=== PATIENT | male | born 1960 | race Caucasian/White ===

== ENCOUNTER 2017-03-30 09:41 | Emergency (ER) | payer SELFPAY ==
[2017-03-30 09:50] VITALS: BP 163/92
[2017-03-30] MEDS ORDERED: Proparacaine 0.5% Ophth Soln 15 ML Bottle EYERT ONE (10:01)
--- NOTE | 2017-03-30 10:22 | EDM.PDOC ---
ED HPI GENERAL MEDICAL PROBLEM - General Chief Complaint: Eye Problems Stated Complaint: SOMETHING IN RIGHT EYE Time Seen by Provider: 03/30/17 09:55 Source of Information: Reports: Patient History Limitations: Reports: No Limitations - History of Present Illness INITIAL COMMENTS - FREE TEXT/NARRATIVE: 56-year-old male feels a foreign body sensation in his right eye for the last 3 days. This morning it was very painful and his vision was blurry, it felt then that the foreign body dislodged and moved laterally but he is still having some symptoms so wanted it checked. Associated Symptoms: Reports: No Other Symptoms - Related Data Allergies Allergy/AdvReac Type Severity Reaction Status Date / Time No Known Allergies Allergy Verified 03/30/17 09:52 Home Meds: Home Meds NK [No Known Home Meds] 03/30/17 [History] Past Medical History - Past Health History Medical/Surgical History: Denies Medical/Surgical History - Past Surgical History GI Surgical History: Reports: Hernia, Abdominal Social & Family History - Tobacco Use Smoking Status *Q: Never Smoker Second Hand Smoke Exposure: No - Recreational Drug Use Recreational Drug Use: No ED ROS GENERAL - Review of Systems Review Of Systems: See Below Constitutional: Denies: Fever, Chills HEENT: Denies: Contact Lenses Respiratory: Denies: Shortness of Breath Cardiovascular: Denies: Chest Pain GI/Abdominal: Denies: Nausea, Vomiting Neurological: Denies: Headache ED EXAM GENERAL W FULL EYE - Physical Exam Exam: See Below Exam Limited By: No Limitations General Appearance: Alert, No Apparent Distress Eye Exam: Right Eye: Conjunctival Injection, Corneal Abrasion Eyelids: Right: Lid Everted for Exam (Normal exam, no foreign body) Cornea Exam: Right: Corneal Abrasion (Round abrasion is present at 1:00) Extraocular Movements: Bilateral: Intact Respiratory/Chest: No Respiratory Distress Course - Vital Signs Last Recorded V/S: Last Vital Signs Temp 97.8 F 03/30/17 09:49 Pulse 66 03/30/17 09:49 Resp 18 03/30/17 09:49 BP 163/92 H 03/30/17 09:49 Pulse Ox 95 03/30/17 09:49 - Orders/Labs/Meds Meds: Medications Discontinued Medications Generic Name Dose Route Start Last Admin Trade Name Freq PRN Reason Stop Dose Admin Proparacaine HCl 1 ml 03/30/17 10:01 Proparacaine 0.5% Ophth Yvonne EYERT 03/30/17 10:02 ONETIME ONE - Re-Assessments/Exams Free Text/Narrative Re-Assessment/Exam: 03/30/17 10:20 After proparacaine anesthesia, fluorescein staining was done which didn't show any obvious abnormality. The eye was then examined through the slit lamp and a small round abrasion or possibly ulceration was found at 1:00 on the edge of the cornea. There was no residual stain or rim. The eyelid was inverted completely and examined closely and there was no underlying foreign body. I believe this patient probably had a foreign body on the cornea the last couple of days and it dislodged this morning. He'll be covered with gentamicin eyedrops for the next 3 days and recheck with optometry in 24-48 hours if not improving. Departure - Departure Time of Disposition: 10:28 Disposition: Home, Self-Care 01 Condition: Good Clinical Impression: Corneal abrasion Qualifiers: Encounter type: initial encounter Laterality: right Qualified Code(s): S05.01XA - Injury of conjunctiva and corneal abrasion without foreign body, right eye, initial encounter - Discharge Information Instructions: Corneal Abrasion, [id number] Referrals: PCP,None [Primary Care Provider] - Forms: ED Department Discharge Care Plan Goals: Use 2 drops in the right eye 3 times a day for the next 3 days, recheck with optometry in 24-48 hours if not improving satisfactorily.
== END 2017-03-30 10:28 | disposition home or self-care (01) ==
LOC: JP.ED 09:41
DX: S05.01XA Injury of conjunctiva and corneal abrasion without foreign body, right eye, initial encounter (principal); Z98.890 Other specified postprocedural states; X58.XXXA Exposure to other specified factors, initial encounter
CPT/HCPCS: 99283

== ENCOUNTER 2019-08-07 14:46 | Emergency (ER) | payer OTHER ==
[2019-08-07 15:06] VITALS: BP 180/92; PULSE 78
[2019-08-07] MEDS ORDERED: Ketorolac 30 MG/ML SDV IVPUSH ONE (15:46)
--- NOTE | 2019-08-07 15:52 | EDM.PDOC ---
ED HPI GENERAL MEDICAL PROBLEM - General Chief Complaint: Flank Pain Stated Complaint: KIDNEY STONES Time Seen by Provider: 08/07/19 15:15 Source of Information: Reports: Patient, Family History Limitations: Reports: No Limitations - History of Present Illness INITIAL COMMENTS - FREE TEXT/NARRATIVE: 58-year-old male with a history of renal stones presents with intense left flank pain for the past 2 hours after experiencing hematuria earlier today. Some nausea but no vomiting, no fever or chills. The pain has lessened over the past 20 minutes but is still present. Onset: Sudden (Hematuria started 4 hours ago, pain 2 hours ago) Associated Symptoms: Reports: Other (Nausea but no vomiting) Left Flank Pain Score (Numeric/FACES): 3 - Related Data Allergies Allergy/AdvReac Type Severity Reaction Status Date / Time codeine Allergy Hives Verified 08/07/19 15:06 methocarbamol [From Robaxin] Allergy Swelling Verified 08/07/19 15:06 Home Meds: Home Meds NK [No Known Home Meds] 03/30/17 [History] Past Medical History - Past Health History Medical/Surgical History: Denies Medical/Surgical History Genitourinary History: Reports: Renal Calculus - Past Surgical History GI Surgical History: Reports: Hernia, Abdominal Social & Family History - Tobacco Use Smoking Status *Q: Former Smoker Used Tobacco, but Quit: Yes Month/Year Tobacco Last Used: 0 - Caffeine Use Caffeine Use: Reports: Coffee Other Caffeine Use: 1 pot per day - Recreational Drug Use Recreational Drug Use: No ED ROS GENERAL - Review of Systems Review Of Systems: See Below Constitutional: Reports: Malaise. Denies: Fever, Chills HEENT: Reports: No Symptoms Respiratory: Reports: No Symptoms Cardiovascular: Reports: Dyspnea on Exertion GI/Abdominal: Reports: Other (Some pain radiating around the left flank to the left lower abdomen) : Reports: Hematuria, Urgency. Denies: Dysuria Skin: Reports: No Symptoms Neurological: Reports: No Symptoms ED EXAM, RENAL/ - Physical Exam Exam: See Below Exam Limited By: No Limitations General Appearance: Alert, Mild Distress (Fairly uncomfortable) Respiratory/Chest: No Respiratory Distress Back Exam: No: CVA Tenderness (R), CVA Tenderness (L) Neurological: Alert, Oriented Psychiatric: Normal Mood, Anxious Skin Exam: Warm, Dry Course - Vital Signs Last Recorded V/S: Last Vital Signs Temp 98.4 F 08/07/19 15:04 Pulse 78 08/07/19 15:04 Resp 16 08/07/19 15:04 BP 180/92 H 08/07/19 15:04 Pulse Ox 97 08/07/19 15:04 - Orders/Labs/Meds Meds: Medications Discontinued Medications Generic Name Dose Route Start Last Admin Trade Name Diana PRN Reason Stop Dose Admin Ketorolac Tromethamine 30 mg 08/07/19 15:46 08/07/19 15:57 Toradol IVPUSH 08/07/19 15:47 30 mg ONETIME ONE Administration Tamsulosin HCl 0.4 mg 08/07/19 16:14 08/07/19 16:40 Flomax PO 08/07/19 16:15 0.4 mg ONETIME ONE Administration - Re-Assessments/Exams Free Text/Narrative Re-Assessment/Exam: 08/07/19 15:51 CT of the abdomen and pelvis without contrast was ordered. 08/07/19 16:23 CT shows a 3 mm obstructing stone at the ureteropelvic junction of the left kidney. There is hydronephrosis. After 30 mg of IV Toradol his pain all but resolved. He was given 0.4 mg of oral Flomax, a prescription for 20 additional doses of Toradol to take every 6-8 hours and 10 hydrocodone. He is going to return for a recheck in 2 to 3 days if not improving satisfactorily. He can return sooner if worsening. Departure - Departure Time of Disposition: 17:00 Disposition: Home, Self-Care 01 Clinical Impression: Ureteric colic, Left nephrolithiasis - Discharge Information Instructions: Kidney Stones, [id number] Referrals: PCP,None [Primary Care Provider] - Forms: ED Department Discharge Care Plan Goals: Take 1 dose of Toradol every 6-8 hours per continuing pain, and add stronger pain medications if needed. 1 daily Flomax for up to 5 days unless no symptoms. Return sooner if worsening despite treatment. Sepsis Event Note - Evaluation Sepsis Screening Result: No Definite Risk - Focused Exam Vital Signs: Vital Signs Temp Pulse Resp BP Pulse Ox 08/07/19 15:04 98.4 F 78 16 180/92 H 97 Date Exam was Performed: 08/07/19 Time Exam was Performed: 17:11
--- NOTE | 2019-08-07 16:11 | CRLCT ---
INDICATION: Left flank pain. Hematuria. History of urinary tract calculi. TECHNIQUE: Noncontrast abdominal pelvic CT. COMPARISON: July 18, 2016. FINDINGS: There is a 3 mm stone in the proximal left ureter at or near the ureteropelvic junction, image 75 series 3 and image 102 series 2. Interestingly, in retrospect there was a stone measuring 3 mm in this exact location on July 18, 2016. It could be that the stone never passed. ? any history of a UPJ type obstruction. Persistent dilatation of left renal collecting system appears minimally improved compared to the prior study. No perinephric fat stranding. No additional urinary tract calculi are confidently identified. The unenhanced liver, spleen, pancreas, largely contracted gallbladder, and left adrenal gland are normal. Stable 1.1 cm low-attenuation right adrenal gland nodule likely an adenoma. Small stable esophageal hiatal hernia. Normal caliber abdominal aorta and iliac arteries containing scattered vascular calcification. Normal inferior vena cava. Small fat containing umbilical hernia unchanged. No evidence for small or large bowel obstruction or ileus. No ascites or lymphadenopathy. The urinary bladder, prostate gland, and seminal vesicles are normal. Calcified granuloma right lung base posteromedially. There is a new compression fracture of L1 along the superior endplate. This was not evident on July 18, 2016 but could be subacute or older. Please correlate clinically. Degenerative disc disease at L5. IMPRESSION: 1. Superior endplate compression fracture of L1 although new compared to the prior study may in fact be older/ subacute. Please correlate clinically. 2. Stable 3 mm stone at the left ureteropelvic junction with mild left-sided hydronephrosis which is stable to improved. ? Any history of a UPJ type obstruction. 3. Small right adrenal gland adenoma. Small umbilical hernia containing fat. Please note that all CT scans at this facility use dose modulation, iterative reconstruction, and/or weight-based dosing when appropriate to reduce radiation dose to as low as reasonably achievable. Dictated by Zach Franco MD @ Aug 07 2019 3:54PM Signed by Dr. Zach Franco @ Aug 07 2019 4:09PM
[2019-08-07] MEDS ORDERED: Tamsulosin 0.4 MG Cap.ER PO ONE (16:14)
== END 2019-08-07 17:26 | disposition home or self-care (01) ==
LOC: JP.ED 14:46
DX: N13.2 Hydronephrosis with renal and ureteral calculous obstruction (principal); Z87.891 Personal history of nicotine dependence; Z88.5 Allergy status to narcotic agent; Z87.442 Personal history of urinary calculi
CPT/HCPCS: 74176; 96374; 99284; A9270; J1885

== ENCOUNTER 2019-12-17 15:21 | Emergency (ER) | payer OTHER ==
[2019-12-17 16:48] VITALS: PULSE 66
[2019-12-17] MEDS ORDERED: Aspirin 81 MG Tab.Chew PO ONE (16:50)
--- NOTE | 2019-12-17 16:59 | EDM.PDOC ---
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 He has had some mild numbness in his R hand for a couple weeks. He takes his BP weekly at home and it runs in the 130's. He says his BP is often high when seen in a medical setting. He denies CP, palpitations , or diaphoresis. No neck pain or hx of neck injury. He has not been tested for diabetes for a long time, but does have this in his family. He does not have a family doctor and hasn't had one for several years. He called the [facility] today about his sx's and was told to go to the ER. Last meal today around midday. Onset: Today Onset Date: 12/17/19 Duration: Hour(s):, Improving Location: Reports: Upper Extremity, Left, Upper Extremity, Right Quality: Reports: Dull Severity: Mild Improves with: Reports: Other (? time, is better than earlier today. ) Worsens with: Reports: Other (unknown) Context: Reports: Other (See HPI) Associated Symptoms: Reports: No Other Symptoms. Denies: Confusion, Chest Pain , Cough, Diaphoresis, Fever/Chills, Headaches, Nausea/Vomiting, Shortness of Breath, Syncope Treatments MULTI SHARE PROGRAM COORDINATOR: Reports: Other (see below) (none) - Related Data Allergies Allergy/AdvReac Type Severity Reaction Status Date / Time codeine Allergy Hives Verified 12/17/19 16:27 methocarbamol [From Robaxin] Allergy Swelling Verified 12/17/19 16:27 Home Meds: Home Meds NK [No Known Home Meds] 03/30/17 [History] Past Medical History - Past Health History Medical/Surgical History: Denies Medical/Surgical History Cardiovascular History: Reports: Arrhythmia Gastrointestinal History: Reports: GERD Genitourinary History: Reports: Renal Calculus Neurological History: Reports: Concussion - Infectious Disease History Infectious Disease History: Reports: Chicken Pox - Past Surgical History HEENT Surgical History: Reports: LASIK GI Surgical History: Reports: Hernia, Abdominal Social & Family History - Tobacco Use Smoking Status *Q: Former Smoker Used Tobacco, but Quit: Yes Month/Year Tobacco Last Used: 2012 - Caffeine Use Caffeine Use: Reports: Coffee Other Caffeine Use: 1 pot per day - Recreational Drug Use Recreational Drug Use: No ED ROS GENERAL - Review of Systems Review Of Systems: See Below Constitutional: Reports: No Symptoms HEENT: Reports: No Symptoms Respiratory: Reports: No Symptoms Cardiovascular: Reports: No Symptoms Endocrine: Reports: No Symptoms GI/Abdominal: Reports: No Symptoms : Reports: No Symptoms Musculoskeletal: Reports: No Symptoms Skin: Reports: No Symptoms Neurological: Reports: Numbness (subtle of both arms, improved over earlier. ). Denies: Confusion, Dizziness, Headache, Pre-Existing Deficit, Seizure, Syncope , Trouble Speaking, Difficulty Walking, Weakness, Change in Speech, Gait Disturbance Psychiatric: Reports: No Symptoms ED EXAM, NEURO - Physical Exam Exam: See Below Exam Limited By: No Limitations General Appearance: Alert, WD/WN, No Apparent Distress Eye Exam: Bilateral Eye: EOMI, Normal Inspection, PERRL Ears: Normal External Exam, Normal Canal, Hearing Grossly Normal, Normal TMs Nose: Normal Inspection, No Blood Throat/Mouth: Normal Inspection, Normal Lips, Normal Oropharynx, Normal Voice, No Airway Compromise Head Exam: Atraumatic, Normocephalic Neck: Normal Inspection Respiratory/Chest: No Respiratory Distress, Lungs Clear, Normal Breath Sounds, No Accessory Muscle Use Cardiovascular: Regular Rate, Rhythm, No Edema GI/Abdominal: Normal Bowel Sounds, Soft, Non-Tender, No Distention Neurological: Alert, Normal Mood/Affect, Normal Dorsiflexion, CN II-XII Intact, Normal Gait, No Motor/Sensory Deficits, Oriented x 3. No: Ataxia, Difficulty Walking DTR: 2+: Bicep (R), Bicep (L), Tricep (R), Tricep (L), Patella (R), Patella (L) , Achilles (R), Achilles (L) Back Exam: Normal Inspection. No: CVA Tenderness (R), CVA Tenderness (L) Extremities: Normal Inspection, Normal Range of Motion, Non-Tender, No Pedal Edema. No: Pedal Edema Psychiatric: Normal Affect, Normal Mood Skin Exam: Warm, Dry, Intact, Normal Color, No Rash Course - Vital Signs Last Recorded V/S: Last Vital Signs Temp 36.5 C 12/17/19 16:31 Pulse 66 12/17/19 16:48 Resp 16 12/17/19 16:48 BP 178/89 H 12/17/19 16:48 Pulse Ox 97 12/17/19 16:48 - Orders/Labs/Meds Labs: Laboratory Tests 12/17/19 12/17/19 Range/Units 17:01 17:01 WBC 6.3 (4.5-11.0) K/uL RBC 5.02 (4.30-5.90) M/uL Hgb 15.1 H (12.0-15.0) g/dL Hct 46.2 (40.0-54.0) % MCV 92 (80-98) fL MCH 30 (27-31) pg MCHC 33 (32-36) % Plt Count 200 (150-400) K/uL Sodium 142 (140-148) mmol/L Potassium 4.0 (3.6-5.2) mmol/L Chloride 106 (100-108) mmol/L Carbon Dioxide 29 (21-32) mmol/L Anion Gap 7.5 (5.0-14.0) mmol/L BUN 23 H (7-18) mg/dL Creatinine 1.2 (0.8-1.3) mg/dL Est Cr Clr Drug Dosing 80.20 mL/min Estimated GFR (MDRD) > 60 (>60) Glucose 111 H (74-106) mg/dL Calcium 8.9 (8.5-10.1) mg/dL Troponin I < 0.017 (0.000-0.056) ng/mL Meds: Medications Discontinued Medications Generic Name Dose Route Start Last Admin Trade Name Freq PRN Reason Stop Dose Admin Aspirin 324 mg 12/17/19 16:50 12/17/19 16:57 Aspirin PO 12/17/19 16:51 324 mg ONETIME ONE Administration Departure - Departure Time of Disposition: 17:36 Disposition: Home, Self-Care 01 Condition: Fair Clinical Impression: Prediabetes HTN (hypertension) Qualifiers: Hypertension type: unspecified Qualified Code(s): I10 - Essential (primary) hypertension - Discharge Information *PRESCRIPTION DRUG MONITORING PROGRAM REVIEWED*: Not Applicable *COPY OF PRESCRIPTION DRUG MONITORING REPORT IN PATIENT YUAN: Not Applicable Instructions: Hypertension, Adult, [id number], Prediabetes Eating Plan Referrals: PCP,None [Primary Care Provider] - Forms: ED Department Discharge Additional Instructions: I would recommend you take telmisartan 40 mg daily for a week, then 80 mg daily. Avoid salt. Watch simple sugars and low fiber carbs to keep your blood sugars down. Get established in a clinic of your choice to get your numbers in line. Return if a lot worse. Consider metformin treatment for your blood sugars. Take a baby aspirin daily with food. If you haven't had your lipids checked, this needs to be done as well. Sepsis Event Note (ED) - Evaluation Sepsis Screening Result: No Definite Risk - Focused Exam Vital Signs: Vital Signs Temp Pulse Resp BP Pulse Ox 12/17/19 16:48 66 16 178/89 H 97 12/17/19 16:31 36.5 C 74 17 179/87 H 97 12/17/19 16:28 36.5 C 74 17 179/87 H 97
[2019-12-17 17:36] VITALS: BP 187/99
== END 2019-12-17 18:06 | disposition home or self-care (01) ==
LOC: JP.ED 15:21
DX: I10 Essential (primary) hypertension (principal); R73.03 Prediabetes; Z88.5 Allergy status to narcotic agent; Z88.6 Allergy status to analgesic agent; Z87.891 Personal history of nicotine dependence
CPT/HCPCS: 36415; 80048; 84484; 85027; 99284; A9270

== ENCOUNTER 2020-11-04 03:03 | Emergency (ER) | payer OTHER ==
[2020-11-04] MEDS ORDERED: Sodium Chloride 0.9% 10 ML Syringe FLUSH PRN (03:20)
[2020-11-04] MEDS ORDERED: Diltiazem 25 MG/5 ML SDV IVPUSH ONE ×2 (03:20→03:37)
--- NOTE | 2020-11-04 03:27 | EDM.PDOC ---
ED HPI GENERAL MEDICAL PROBLEM - General Chief Complaint: Cardiovascular Problem Stated Complaint: FAST HEART BEAT,HIGH BP Time Seen by Provider: 11/04/20 03:19 Source of Information: Reports: Patient History Limitations: Reports: No Limitations - History of Present Illness INITIAL COMMENTS - FREE TEXT/NARRATIVE: Panchito is a 60-year-old male presenting to the ED for evaluation of a rapid irregular heartbeat. Patient was in his usual state of health until roughly 3 hours ago when he started develop a rapid heartbeat accompanied by some chest tightness. Patient has not experienced this prior and initially thought it would just pass. The patient has a history of prediabetes and hypertension. - Related Data Allergies Allergy/AdvReac Type Severity Reaction Status Date / Time codeine Allergy Hives Verified 11/04/20 03:20 methocarbamol [From Robaxin] Allergy Swelling Verified 11/04/20 03:20 Home Meds: Home Meds Apixaban [Eliquis] 5 mg PO BID 30 Days #60 tablet 11/04/20 [Rx] Past Medical History - Past Health History Medical/Surgical History: Denies Medical/Surgical History Cardiovascular History: Reports: Arrhythmia Gastrointestinal History: Reports: GERD Genitourinary History: Reports: Renal Calculus Neurological History: Reports: Concussion - Infectious Disease History Infectious Disease History: Reports: Chicken Pox - Past Surgical History HEENT Surgical History: Reports: LASIK GI Surgical History: Reports: Hernia, Abdominal Social & Family History - Caffeine Use Caffeine Use: Reports: Coffee Other Caffeine Use: 1 pot per day ED ROS GENERAL - Review of Systems Review Of Systems: See Below Constitutional: Reports: No Symptoms HEENT: Reports: No Symptoms Respiratory: Reports: No Symptoms Cardiovascular: Reports: Chest Pain (Chest tightness), Palpitations (Rapid irregular pulse) Endocrine: Reports: No Symptoms GI/Abdominal: Reports: No Symptoms : Reports: No Symptoms Musculoskeletal: Reports: No Symptoms Skin: Reports: No Symptoms Neurological: Reports: No Symptoms Psychiatric: Reports: No Symptoms Hematologic/Lymphatic: Reports: No Symptoms Immunologic: Reports: No Symptoms ED EXAM, GENERAL - Physical Exam Exam: See Below Exam Limited By: No Limitations General Appearance: Alert, No Apparent Distress, Anxious Eye Exam: Bilateral Eye: EOMI, PERRL Throat/Mouth: Normal Inspection, Normal Oropharynx, Normal Voice, No Airway Compromise Head: Atraumatic, Normocephalic Neck: Normal Inspection, Supple Respiratory/Chest: No Respiratory Distress, Lungs Clear, Normal Breath Sounds Cardiovascular: Normal Peripheral Pulses, Tachycardia, Irregularly Irregular Peripheral Pulses: 2+: Radial (L), Radial (R), Posterior Tibial (L), Posterior Tibial (R) GI/Abdominal: Normal Bowel Sounds, Soft, Non-Tender Extremities: Normal Inspection, Normal Range of Motion, No Pedal Edema Neurological: Alert, Oriented, Normal Cognition, No Motor/Sensory Deficits Psychiatric: Normal Affect, Normal Mood Skin Exam: Warm, Dry, Intact, Normal Color Lymphatic: No Adenopathy ED CARDIOLOGY PROCEDURES - Cardioversion Time of Cardioversion: 05:45 Indication: Atrial Fibrillation with RVR Patient Counseled: Yes Informed Consent Obtained: Yes Preparation: IV Access, Airway Management Equipment, Supplemental Oxygen, Monitor, Reversal Agents Available Pre-Procedure Sedation: Propofol Cardioversion Energy: 200J Sync Mode: Biphasic Successful: Yes Number of Attempts: 1 Patient Condition Post Cardioversion: Improved Post Cardioversion EKG Reviewed: Yes (Normal sinus rhythm with frequent PACs. Rate is 66 bpm.) #1 Interpretation EKG Date: 11/04/20 Time: 03:10 Rhythm: A-Fib Rate (Beats/Min): 170 P-Wave: Absent QRS: Normal ST-T: Other (Repolarization abnormality) QT: Prolonged Comparison: NA - No Prior EKG #2 Interpretation EKG Date: 11/04/20 Time: 05:51 Rhythm: NSR Rate (Beats/Min): 57 [place]: Normal P-Wave: Present QRS: Normal ST-T: Other (Flattening of T waves in the inferior leads II, III and aVF.) QT: Prolonged Comparison: Change From Previous EKG Course - Vital Signs Last Recorded V/S: Last Vital Signs Temp 36.7 C 11/04/20 03:08 Pulse 168 H 11/04/20 03:08 Resp 14 11/04/20 03:53 BP 137/71 11/04/20 03:53 Pulse Ox 93 L 11/04/20 03:53 - Orders/Labs/Meds Orders: Active Orders 24 hr Category Date Time Status EKG Documentation Completion [RC] ASDIRECTED Care 11/04/20 03:21 Active EKG Documentation Completion [RC] ASDIRECTED Care 11/04/20 05:47 Active Diltiazem [Cardizem] 100 mg Med 11/04/20 04:15 Active Sodium Chloride 0.9% [Normal Saline] 100 ml IV TITRATE Sodium Chloride 0.9% [Saline Flush] Med 11/04/20 03:20 Active 10 ml FLUSH ASDIRECTED PRN Saline Lock Insert [OM.PC] Routine Oth 11/04/20 03:20 Ordered EKG 12 Lead [EK] Routine Ther 11/04/20 03:20 Ordered EKG 12 Lead [EK] Routine Ther 11/04/20 05:47 Ordered Medication Orders Diltiazem HCl 100 mg/ Sodium (Chloride) 100 mls @ 5 mls/hr IV TITRATE TONY; Protocol Last Titration: 11/04/20 05:25 Dose: 0 mg/hr, 0 mls/hr Documented by: Admin: 11/04/20 04:22 Dose: 5 mg/hr, 5 mls/hr Documented by: BRITTANIE Sodium Chloride (Sodium Chloride 0.9% 10 Ml Syringe) 10 ml FLUSH ASDIRECTED PRN PRN Reason: Keep Vein Open Last Admin: 11/04/20 03:29 Dose: 10 ml Documented by: BRITTANIE Labs: Laboratory Tests 11/04/20 11/04/20 11/04/20 Range/Units 03:10 03:10 03:10 WBC 8.3 (4.5-11.0) K/uL RBC 5.45 (4.30-5.90) M/uL Hgb 16.5 H (12.0-15.0) g/dL Hct 49.4 (40.0-54.0) % MCV 91 (80-98) fL MCH 30 (27-31) pg MCHC 33 (32-36) % Plt Count 193 (150-400) K/uL Neut % (Auto) 55 (36-66) % Lymph % (Auto) 30 (24-44) % Cassia % (Auto) 11 H (2-6) % Eos % (Auto) 3 (2-4) % Baso % (Auto) 0 (0-1) % PT 10.7 (9.5-12.0) sec INR 0.98 (0.80-1.20) APTT 25.9 L (27.0-36.0) sec Sodium 149 H (140-148) mmol/L Potassium 4.5 (3.6-5.2) mmol/L Chloride 109 H (100-108) mmol/L Carbon Dioxide 25 (21-32) mmol/L Anion Gap 19.5 H (5.0-14.0) mmol/L BUN 25 H (7-18) mg/dL Creatinine 1.2 (0.8-1.3) mg/dL Est Cr Clr Drug Dosing 79.22 mL/min Estimated GFR (MDRD) > 60 (>60) Glucose 101 (74-106) mg/dL Calcium 9.4 (8.5-10.1) mg/dL Magnesium (1.8-2.4) mg/dL Total Bilirubin 0.5 (0.2-1.0) mg/dL AST 20 (15-37) U/L ALT 37 (12-78) U/L Alkaline Phosphatase 76 (46-116) U/L Troponin I < 0.017 (0.000-0.056) ng/mL Total Protein 7.4 (6.4-8.2) g/dL Albumin 3.8 (3.4-5.0) g/dL Globulin 3.6 H (2.3-3.5) g/dL Albumin/Globulin Ratio 1.1 L (1.2-2.2) TSH, Ultra Sensitive 1.137 (0.358-3.740) uIU/mL 11/04/20 Range/Units 03:10 WBC (4.5-11.0) K/uL RBC (4.30-5.90) M/uL Hgb (12.0-15.0) g/dL Hct (40.0-54.0) % MCV (80-98) fL MCH (27-31) pg MCHC (32-36) % Plt Count (150-400) K/uL Neut % (Auto) (36-66) % Lymph % (Auto) (24-44) % Cassia % (Auto) (2-6) % Eos % (Auto) (2-4) % Baso % (Auto) (0-1) % PT (9.5-12.0) sec INR (0.80-1.20) APTT (27.0-36.0) sec Sodium (140-148) mmol/L Potassium (3.6-5.2) mmol/L Chloride (100-108) mmol/L Carbon Dioxide (21-32) mmol/L Anion Gap (5.0-14.0) mmol/L BUN (7-18) mg/dL Creatinine (0.8-1.3) mg/dL Est Cr Clr Drug Dosing mL/min Estimated GFR (MDRD) (>60) Glucose (74-106) mg/dL Calcium (8.5-10.1) mg/dL Magnesium 2.1 (1.8-2.4) mg/dL Total Bilirubin (0.2-1.0) mg/dL AST (15-37) U/L ALT (12-78) U/L Alkaline Phosphatase (46-116) U/L Troponin I (0.000-0.056) ng/mL Total Protein (6.4-8.2) g/dL Albumin (3.4-5.0) g/dL Globulin (2.3-3.5) g/dL Albumin/Globulin Ratio (1.2-2.2) TSH, Ultra Sensitive (0.358-3.740) uIU/mL Meds: Medications Generic Name Dose Route Start Last Admin Trade Name Freq PRN Reason Stop Dose Admin Diltiazem HCl 100 mg/ Sodium 100 mls @ 5 mls/hr 11/04/20 04:15 11/04/20 05:25 Chloride IV 0 mg/hr TITRATE TONY 0 mls/hr Titration Protocol 5 MG/HR Sodium Chloride 10 ml 11/04/20 03:20 11/04/20 03:29 Sodium Chloride 0.9% 10 Ml Syringe FLUSH 10 ml ASDIRECTED PRN Administration Keep Vein Open Discontinued Medications Generic Name Dose Route Start Last Admin Trade Name Freq PRN Reason Stop Dose Admin Apixaban 5 mg 11/04/20 03:59 11/04/20 04:23 Apixaban 5 Mg Tab PO 11/04/20 04:00 5 mg ONETIME ONE Administration Apixaban Confirm 11/04/20 04:19 11/04/20 05:26 Apixaban 2.5 Mg Tab Administered 11/04/20 04:20 Not Given Dose 5 mg .ROUTE .STK-MED ONE Diltiazem HCl 20 mg 11/04/20 03:20 11/04/20 03:28 Diltiazem 25 Mg/5 Ml Sdv IVPUSH 11/04/20 03:21 20 mg ONETIME ONE Administration Diltiazem HCl 20 mg 11/04/20 03:37 11/04/20 03:42 Diltiazem 25 Mg/5 Ml Sdv IVPUSH 11/04/20 03:38 20 mg ONETIME ONE Administration Propofol Confirm 11/04/20 05:54 Propofol 200 Mg/20 Ml Sdv Administered 11/04/20 05:55 Dose 200 mg .ROUTE .[facility] ONE - Re-Assessments/Exams Free Text/Narrative Re-Assessment/Exam: 11/04/20 04:00 the patient is in atrial fib with a rapid ventricular response and was given diltiazem 20 mg IV push without any significant change in his rapid ventricular response. He was subsequently given an additional 20 mg of diltiazem IV push with some improvement in his ventricular rate, however, he is not to goal. He was given a dose of Eliquis 5 mg for anticoagulation as his Chads Vasc 2 score is 1 with recommendations for this. Patient persists to have a rapid ventricular response and was started on diltiazem drip. 11/04/20 05:14 despite putting the patient on a diltiazem drip, he still not really very well rate controlled so we discussed risks and benefits of an elective cardioversion. He has been in atrial fibrillation for less than 6 hours. After discussing risks and benefits he has agreed to proceed with a cardioversion. Zach from anesthesia was contacted to assist with the procedure. 11/04/20 05:54 patient was put under conscious sedation with propofol by Zach from anesthesia and was synchronized cardioverted with 200 J requiring 1 event converting him back into normal sinus rhythm. Postconversion EKG shows normal sinus rhythm with a rate of 57 bpm. He has early R wave progression in the precordial leads. He has left ventricular hypertrophy by voltage criteria. He has borderline T wave abnormalities in the inferior leads with flattening of the T waves. Departure - Departure Time of Disposition: 06:46 Disposition: Admitted As Inpatient 67 Clinical Impression: New onset atrial fibrillation, Encounter for cardioversion procedure Prescriptions: Apixaban [Eliquis] 5 mg PO BID 30 Days #60 tablet Instructions: Electrical Cardioversion, Atrial Fibrillation, [id number] Referrals: PCP,None [Primary Care Provider] - Forms: ED Department Discharge Care Plan Goals: He had successful electrocardioversion of your heart for atrial fibrillation. Your heart is still very irritable so I would definitely limit your caffeine intake to 2 cups of coffee per day and no caffeinated carbonated beverages. In addition, I would limit your activity to very light duty and/or rest as to not over stimulate the heart irritating it back into an atrial fibrillation state. I am starting you on Eliquis which is an antiplatelet drug preventing clot formation and thereby reducing your risk of stroke or pulmonary embolism. You need to take this twice daily for at least the next 30 days. I would like you to follow-up with your primary care provider to discuss whether or not to extend that beyond that period of time. Typically we would go 3 months on Eliquis without recurrence of atrial fibrillation before we would consider discontinuing it. Again he will likely need to follow-up with your primary care provider to obtain an echocardiogram to determine the anatomy of your heart and what can be done to mitigate the risk for going back into atrial fibrillation. For this reason I would recommend making an appointment as soon as possible to discuss this. Certainly if you go back into atrial fibrillation or have a rapid pulse again I would return to the ED immediately for reevaluation. Sepsis Event Note (ED) - Evaluation Sepsis Screening Result: No Definite Risk - Focused Exam Vital Signs: Vital Signs Temp Pulse Resp BP Pulse Ox 11/04/20 03:53 14 137/71 93 L 11/04/20 03:38 169/67 H 11/04/20 03:35 138/68 11/04/20 03:23 149/77 H 11/04/20 03:08 36.7 C 168 H 12 154/87 H 96 - Problem List & Annotations (1) New onset atrial fibrillation SNOMED Code(s): 74805915 Code(s): I48.91 - UNSPECIFIED ATRIAL FIBRILLATION Status: Acute Priority: High Current Visit: Yes (2) Encounter for cardioversion procedure SNOMED Code(s): 205079945, 316538973, 969497442 Code(s): Z01.89 - ENCOUNTER FOR OTHER SPECIFIED SPECIAL EXAMINATIONS Status: Acute Priority: High Current Visit: Yes - Problem List Review Problem List Initiated/Reviewed/Updated: Yes - My Orders Last 24 Hours: My Active Orders 11/04/20 03:20 Sodium Chloride 0.9% [Saline Flush] 10 ml FLUSH ASDIRECTED PRN Saline Lock Insert [OM.PC] Routine EKG 12 Lead [EK] Routine 11/04/20 03:21 EKG Documentation Completion [RC] ASDIRECTED 11/04/20 04:15 Diltiazem [Cardizem] 100 mg Sodium Chloride 0.9% [Normal Saline] 100 ml IV TITRATE 11/04/20 05:47 EKG Documentation Completion [RC] ASDIRECTED EKG 12 Lead [EK] Routine - Assessment/Plan Last 24 Hours: My Active Orders 11/04/20 03:20 Sodium Chloride 0.9% [Saline Flush] 10 ml FLUSH ASDIRECTED PRN Saline Lock Insert [OM.PC] Routine EKG 12 Lead [EK] Routine 11/04/20 03:21 EKG Documentation Completion [RC] ASDIRECTED 11/04/20 04:15 Diltiazem [Cardizem] 100 mg Sodium Chloride 0.9% [Normal Saline] 100 ml IV TITRATE 11/04/20 05:47 EKG Documentation Completion [RC] ASDIRECTED EKG 12 Lead [EK] Routine
[2020-11-04] MEDS ORDERED: Apixaban 5 MG Tab PO ONE (03:59)
[2020-11-04] MEDS ORDERED: Diltiazem 100 MG in Sodium Chloride 0.9% 100 ML IV SCH (04:15)
[2020-11-04] MEDS ORDERED: Apixaban 2.5 MG Tab ONE (04:19)
[2020-11-04] MEDS ORDERED: Propofol 200 MG/20 ML SDV ONE (05:54)
[2020-11-04 07:03] VITALS: BP 136/84; PULSE 58
== END 2020-11-04 07:05 | disposition critical access hospital (66) ==
LOC: JP.ED 03:03
DX: I48.91 Unspecified atrial fibrillation (principal); Z88.5 Allergy status to narcotic agent; Z79.01 Long term (current) use of anticoagulants; Z88.6 Allergy status to analgesic agent
CPT/HCPCS: 36415; 80053; 83735; 84443; 84484; 85025; 85610; 85730; 92960; 93005; 96365; 96376; 99285; A9270; J2704; J3490

== ENCOUNTER 2024-08-18 01:59 | Emergency (ER) | payer OTHER ==
[2024-08-18 02:35] LABS: BASOPHILS ABSOLUTE AUTO 0.03 K/uL (0.00-0.10); BASOPHILS PERCENT AUTO 0.4 % (0.1-1.3); EOSINOPHILS PERCENT AUTO 1.4 % (0.0-5.4); HEMATOCRIT 42.6 % (38.4-49.7); HEMOGLOBIN 14.3 g/dL (12.9-16.9); IMMATURE GRAN ABSOLUTE AUTO 0.02 K/uL (0.00-0.23); IMMATURE GRAN PERCENT AUTO 0.3 % (0.0-0.7); LYMPHOCYTES ABSOLUTE AUTO 1.14 K/uL (0.8-3.3); LYMPHOCYTES PERCENT AUTO 15.5 % (11.4-47.7); MEAN CORPUSCULAR HEMOGLOBIN 30.3 pg (31.6-35.5); MEAN CORPUSCULAR HGB CONC 33.6 g/dL (31.6-35.5); MEAN CORPUSCULAR VOLUME 90.3 fL (81.4-99.0); MONOCYTES PERCENT AUTO 6.8 % (3.3-12.6); NEUTROPHILS ABSOLUTE AUTO 5.58 K/uL (1.0-7.6); NEUTROPHILS PERCENT AUTO 75.6 % (40.0-78.1); PLATELET COUNT,PLT 221 K/uL (130-375); RED BLOOD CELL COUNT 4.72 M/uL (4.14-5.76); WHITE BLOOD CELL COUNT,WBC 7.4 K/uL (3.2-11.0)
[2024-08-18] MEDS: Ketorolac 15 MG/ML SDV IVPUSH ONE (02:36)
[2024-08-18] MEDS: Sodium Chloride 0.9% 1,000 ML IV SCH (02:36)
[2024-08-18 02:50] LABS: ANION GAP 9.4 mmol/L (5.0-14.0); CALCIUM 9.2 mg/dL (8.5-10.1); CREATININE 1.1 mg/dL (0.8-1.3); EST CRCL DRUG DOSING (CG) 81.03 mL/min; POTASSIUM,K 3.8 mmol/L (3.6-5.2)
[2024-08-18 03:16] LABS: APPEARANCE,URINE CLEAR (CLEAR); BILIRUBIN,URINE NEGATIVE (NEGATIVE); COLOR,URINE YELLOW (YELLOW); GLUCOSE,URINE NEGATIVE (NEGATIVE); KETONES,URINE NEGATIVE (NEGATIVE); LEUKOCYTE ESTERASE,URINE NEGATIVE (NEGATIVE); NITRITE,URINE NEGATIVE (NEGATIVE); OCCULT BLOOD,URINE MODERATE (NEGATIVE); PROTEIN,URINE NEGATIVE (NEGATIVE); UROBILINOGEN,URINE 0.2 EU/dL (0.2-1.0)
[2024-08-18 03:36] LABS: BACTERIA,URINE FEW; EPITHELIAL CELLS,URINE RARE; MUCUS,URINE NOT SEEN; RBC,URINE 50-75 (0-5); WBC,URINE 0-5 (0-5)
[2024-08-18 03:37] LABS: AMORPHOUS SEDIMENT,URINE NOT SEEN
[2024-08-18 03:43] VITALS: BP 165/79; PULSE 63
== END 2024-08-18 04:01 | disposition home or self-care (01) ==
LOC: JP.ED 01:59
DX: N13.2 Hydronephrosis with renal and ureteral calculous obstruction (principal); Z88.5 Allergy status to narcotic agent; Z88.8 Allergy status to other drugs, medicaments and biological substances
CPT/HCPCS: 36415; 74176; 80048; 81001; 85025; 96361; 96374; 99284; J1885; J7030